=== PATIENT | female | born 1945 | race Caucasian/White ===

== ENCOUNTER → 2016-08-25 | Outpatient (CLI) | payer MEDICARE | END | disposition home or self-care (01) | LOC: CFH 13:25 | PROVIDERS: ATTEND Family Medicine | DX: Z13.820 Encounter for screening for osteoporosis (principal); M85.88 Other specified disorders of bone density and structure, other site | CPT/HCPCS: 77080 ==

== ENCOUNTER → 2020-04-03 | Outpatient (CLI) | payer MEDICARE | END | disposition home or self-care (01) | LOC: STAR 14:24 | PROVIDERS: ATTEND Anesthesiology | DX: Z20.828 Contact with and (suspected) exposure to other viral communicable diseases (principal) | CPT/HCPCS: 87635 ==

== ENCOUNTER 2020-04-09 11:07 | Day surgery (SDC) | payer MEDICARE ==
[~2020-04-09] VITALS: Ht 170.2 cm; Wt 75.5 kg
[2020-04-09 11:39] VITALS: BP 146/75
[2020-04-09] MEDS ORDERED: MIDAZOLAM 1 MG/ML, 2ML ONE (11:49)
[2020-04-09] MEDS ORDERED: FENTANYL PF 250 MCG/5ML ONE (11:49)
[2020-04-09] MEDS ORDERED: ATOR20TA37 PO (12:00)
[2020-04-09] MEDS ORDERED: CHLORHEXIDINE 15 ML UDC MM ONE (12:00)
[2020-04-09] MEDS ORDERED: LACTATED RINGERS 1,000 ML IV SCH (12:00)
[2020-04-09] MEDS ORDERED: OXYB5TAB10 PO (12:01)
[2020-04-09] MEDS ORDERED: CYCL1DRO EACHEYE (12:03)
[2020-04-09] MEDS ORDERED: ESTR42.53 VG (12:05)
[2020-04-09] MEDS ORDERED: ACYC-57 PO (12:05)
[2020-04-09] MEDS ORDERED: ASPI81TA45 PO (12:06)
[2020-04-09] MEDS ORDERED: CALC250T PO (12:06)
[2020-04-09] MEDS ORDERED: VIT1CAPS42 PO (12:07)
[2020-04-09] MEDS ORDERED: WHEA236P PO (12:07)
[2020-04-09] MEDS ORDERED: ASCO-96 PO (12:07)
[2020-04-09] MEDS ORDERED: BIOT25005 PO (12:08)
[2020-04-09] MEDS ORDERED: CALC215T2 PO (12:08)
[2020-04-09] MEDS ORDERED: flaxseed PO (12:09)
[2020-04-09] MEDS ORDERED: OMEG1CAP23 PO (12:10)
[2020-04-09] MEDS ORDERED: vitamin a PO (12:11)
[2020-04-09] MEDS ORDERED: FLUT9.9S NAS (12:11)
[2020-04-09] MEDS ORDERED: LORA10TA75 PO (12:12)
[2020-04-09] MEDS ORDERED: alteril PO (12:13)
[2020-04-09] MEDS ORDERED: MINO60SO TP (12:13)
[2020-04-09] MEDS ORDERED: ACET-1600 PO (12:14)
[2020-04-09] MEDS ORDERED: NAPR220C2 PO (12:14)
[2020-04-09] MEDS ORDERED: BUPIVACAINE/PF 0.25% ONE (12:24)
[2020-04-09] MEDS ORDERED: INDOCYANINE GREEN 25 MG VIAL ONE (12:36)
[2020-04-09] MEDS ORDERED: INDOCYANINE GREEN 25 MG VIAL INJ ONE (13:00)
[2020-04-09] MEDS ORDERED: ONDANSETRON 2MG/ML, 2ML ONE (13:01)
[2020-04-09] MEDS ORDERED: CEFAZOLIN 1,000 MG ONE (13:01)
[2020-04-09] MEDS ORDERED: PROPOFOL 10 MG/ML, 20ML ONE (13:01)
[2020-04-09] MEDS ORDERED: ROCURONIUM 10MG/ML,5ML ONE (13:01)
[2020-04-09] MEDS ORDERED: PROMETHAZINE 25 MG/ML, 1ML IVPush PRN (13:30)
[2020-04-09] MEDS ORDERED: ACETAMINOPHEN 325 MG TABLET PO PRN (13:30)
[2020-04-09] MEDS ORDERED: MEPERIDINE/PF 25MG/0.5ML IVPush PRN (13:30)
[2020-04-09] MEDS ORDERED: ONDANSETRON 2MG/ML, 2ML IVPush PRN (13:30)
[2020-04-09] MEDS ORDERED: DIAZEPAM 5 MG/ML, 2ML IVPush PRN (13:30)
[2020-04-09] MEDS ORDERED: HYDROmorphone 1 MG/ML, 1ML INJ IVPush PRN (13:30)
[2020-04-09] MEDS ORDERED: FENTANYL PF 100 MCG/2ML IV PRN (13:30)
[2020-04-09] MEDS ORDERED: OXYcodone 5 MG/5 ML ORAL.SOL UDC PO PRN (14:00)
[2020-04-09] MEDS ORDERED: HYDROcodone/APAP 7.5-325MG/15ML UDC ONE (14:09)
[2020-04-09] MEDS ORDERED: HYDROcodone/APAP 7.5-325MG/15ML UDC PO ONE (14:30)
== END 2020-04-09 17:00 | disposition home or self-care (01) ==
LOC: OUT 11:07
PROVIDERS: ATTEND Surgery
DX: K80.10 Calculus of gallbladder with chronic cholecystitis without obstruction (principal); K66.0 Peritoneal adhesions (postprocedural) (postinfection); Z79.899 Other long term (current) drug therapy; Z85.828 Personal history of other malignant neoplasm of skin; Z88.5 Allergy status to narcotic agent; Z88.8 Allergy status to other drugs, medicaments and biological substances
CPT/HCPCS: 47563; 74300; 88304; 93005; J0690; J2250; J2405; J2704; J3010; J7120